=== PATIENT | male | born 1995 | race Caucasian/White ===

== ENCOUNTER 2021-04-02 12:33 | Emergency (ER) | payer OTHER ==
[~2021-04-02] VITALS: Ht 188 cm; Wt 96.8 kg
--- NOTE | 2021-04-02 13:26 | REP ---
INDICATION: trauma. COMPARISON: None. TECHNIQUE: Four views left hand 2nd digit. FINDINGS: There is a volar plate fracture of the middle phalanx IMPRESSION: As above <Electronically signed by Cedrick Moseley > 04/02/21 [id number]
[2021-04-02] MEDS ORDERED: NEOSPORIN OINT 0.9 GM PKT TOP ONE (15:15)
[2021-04-02 15:55] VITALS: BP 128/78
== END 2021-04-02 15:57 | disposition home or self-care (01) ==
LOC: M ED 12:33
DX: S62.601A Fracture of unspecified phalanx of left index finger, initial encounter for closed fracture (principal); Y99.1 Military activity; Y92.9 Unspecified place or not applicable; Y93.9 Activity, unspecified; W23.1XXA Caught, crushed, jammed, or pinched between stationary objects, initial encounter